=== PATIENT | male | born 1970 | race Caucasian/White ===

== ENCOUNTER 2022-01-29 07:08 | Day surgery (SDC) | payer BC ==
[~2022-01-29 07:08] MED LIST: Sodium Chloride 0.9% 10 ML Syringe FLUSH PRN
[2022-01-29] MEDS ORDERED: Propofol 200 MG/20 ML SDV IV ONE (07:09)
[2022-01-29] MEDS ORDERED: Midazolam 1 MG/ML 2 ML SDV IV ONE (07:09)
[2022-01-29] MEDS: Lactated Ringers 1,000 ML IV SCH (07:46)
== END 2022-01-29 09:51 | disposition home or self-care (01) ==
LOC: FB.SDS 07:08
PROVIDERS: ATTEND Surgery
DX: D12.0 Benign neoplasm of cecum (principal); K21.9 Gastro-esophageal reflux disease without esophagitis; I10 Essential (primary) hypertension; Z79.899 Other long term (current) drug therapy; Z87.891 Personal history of nicotine dependence
CPT/HCPCS: 00811-QZ; 88305; J2250; J2704; J7120

== ENCOUNTER 2022-07-08 18:45 | Observation (INO) | payer BC ==
[2022-07-08] MEDS ORDERED: fentaNYL 100 MCG/2 ML SDV IM ONE (19:14)
[2022-07-08] MEDS ORDERED: Ondansetron 8 MG Tab.DIS PO ONE (19:39)
[2022-07-08] MEDS ORDERED: LORazepam 2 MG/ML SDV IM ONE (20:22)
[2022-07-08] MEDS ORDERED: fentaNYL 100 MCG/2 ML SDV IVPUSH PRN ×2 (20:30→23:00)
[2022-07-08] MEDS ORDERED: LORazepam 2 MG/ML SDV IVPUSH ONE (20:58)
[2022-07-08] MEDS ORDERED: Sodium Chloride 0.9% 1,000 ML IV ONE (21:07)
[2022-07-08] MEDS ORDERED: Ondansetron 4 MG/2 ML SDV IVPUSH PRN (22:11)
[2022-07-08] MEDS: Sodium Chloride 0.9% 1,000 ML IV SCH (22:15)
[2022-07-09] MEDS: Sodium Chloride 0.9% 1,000 ML IV SCH (02:35)
== END 2022-07-09 09:55 | disposition home or self-care (01) ==
LOC: FB.ED 18:45 → FB.MS 22:06 → UNDOADMOB 22:06
PROVIDERS: ADMIT Family Medicine; ATTEND Family Medicine
DX: M54.50 Low back pain, unspecified (principal); K21.9 Gastro-esophageal reflux disease without esophagitis; I10 Essential (primary) hypertension; J30.9 Allergic rhinitis, unspecified; M47.816 Spondylosis without myelopathy or radiculopathy, lumbar region; M47.817 Spondylosis without myelopathy or radiculopathy, lumbosacral region; Z79.899 Other long term (current) drug therapy; Z98.890 Other specified postprocedural states; Z87.891 Personal history of nicotine dependence
CPT/HCPCS: 72131; 96361; 96372; 96374; 96375; 99284-25; A9270-GY; G0378; J2060; J3010; J7030